=== PATIENT | male | born 1995 | race Two or more races ===

== ENCOUNTER 2025-02-24 05:29 | Emergency (ER) | payer OTHER, SELFPAY ==
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
[2025-02-24 05:36] VITALS: BP 122/82; BP 124/65; PULSE 61; PULSE 75; RESP 16; TEMP 36.6; O2SAT 99; BMI 31.9
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
[2025-02-24] MEDS: Ibuprofen 800 MG TABLET PO (08:09)
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
[2025-02-24 09:20] VITALS: BP 98/56; PULSE 56; RESP 16; O2SAT 98
[2025-02-24 11:21] VITALS: BP 106/68; PULSE 68; RESP 16; TEMP 36.7; O2SAT 98
== END 2025-02-24 11:22 | disposition home or self-care (01) ==
PROVIDERS: Emergency Provider Emergency Medicine
DX: M79.602 Pain in left arm (principal); S50.812A Abrasion of left forearm, initial encounter; V47.5XXA Car driver injured in collision with fixed or stationary object in traffic accident, initial encounter; Y93.9 Activity, unspecified; Y92.9 Unspecified place or not applicable; Y99.9 Unspecified external cause status; S50.12XA Contusion of left forearm, initial encounter
CPT/HCPCS: 71046; 72040; 73090; 99283; 99284

== ENCOUNTER → 2025-02-24 07:50 | Outpatient (BNV) | payer OTHER, SELFPAY | PROVIDERS: Emergency Provider Emergency Medicine; Visit Provider Radiology Diagnostic Radiology | DX: S50.812A Abrasion of left forearm, initial encounter (principal); S50.12XA Contusion of left forearm, initial encounter; V89.2XXA Person injured in unspecified motor-vehicle accident, traffic, initial encounter | CPT/HCPCS: 71046; 72040; 73090 ==